=== PATIENT | male | born 1990 | race African-American/Black ===

== ENCOUNTER 2020-05-16 20:46 | Emergency (ER) | payer OTHER, SELFPAY ==
[2020-05-16 20:51] VITALS: BP 144/90; PULSE 104; RESP 20; TEMP 36.3; O2SAT 96; BMI 32.8
--- NOTE | 2020-05-16 21:49 | ED.ANIMALBIT ---
HPI - Animal Bite General Chief Complaint: Animal Bite Stated Complaint: dog bite - work related Time Seen by Provider: 05/16/20 21:34 Source: patient Mode of arrival: ambulatory Limitations: no limitations History of Present Illness HPI narrative: Patient comes to emergency room complaining of a dog bite in the right calf. Patient works for [employer]. Patient states that the dog was in the backyard, bit him in the calf. The dog's academic coordinator was present, urged the patient to come to the emergency room, but the academic coordinator did not give any information about himself or the dog. Patient only has the address. Patient has no other injuries. Related Data Previous Rx's Medication Instructions Recorded amoxicillin-pot clavulanate 1 tab PO BID #14 tab 05/16/20 [Augmentin] Allergies Allergy/AdvReac Type Severity Reaction Status Date / Time No Known Allergies Allergy Verified 05/16/20 20:55 Review of Systems Review of Systems: Constitutional : No Weight loss, No Fever, No Chills, No Night Sweats, No Fatigue, No Malaise ENT/Mouth : No Hearing loss, No Ear Pain, No Nasal Congestion, No Sinus Pain, No Hoarseness, No sore throat, No Rhinorrhea, No Swallowing Difficulty Eyes: No Eye Pain, No Swelling, No Redness, No Foreign Body, No Discharge, No Vision Changes Cardiovascular : No Chest Pain, No SOB, No Dyspnea on Exertion, No Orthopnea, No Edema, No Palpitations Respiratory : No Cough, No Sputum, No Wheezing, No Smoke Exposure, No Dyspnea Gastrointestinal : No Nausea, No Vomiting, No Diarrhea, No Constipation, No abdominal Pain, No Hematochezia, No Melena Genitourinary : no irregular bleeding, No Dysuria, No Urinary Frequency, No Hematuria, No Urinary Incontinence, No Urgency, No Flank Pain, No Urinary Flow Changes, No Hesitancy Musculoskeletal : Dog bite to right calf Skin : No Skin Lesions, No rash Neuro : No Weakness, No Numbness, No Paresthesias, No Loss of Consciousness, No Dizziness, No Headache Psych : No Anxiety/Panic, No Depression, No SI/HI/AH/VH, No Social Issues, Heme/Lymph: No Bruising, No Bleeding,No Lymphadenopathy Endocrine : No Polyuria, No Polydipsia, No Temperature Intolerance PMFSH Past Medical History Surgical History History of eye surgery History of knee surgery Social History Social History Advance Directives: No Advance Directives Information Provided: Yes Physical Exam Vital Signs: Vital Signs: Last Vital Signs Temp 97.3 F 05/16/20 20:51 Pulse 104 H 05/16/20 20:51 Resp 20 05/16/20 20:51 BP 144/90 H 05/16/20 20:51 Pulse Ox 96 05/16/20 20:51 Body Mass Index 32.8 Appearance: Alert. Oriented X3. No acute distress. Eyes: Pupils equal, round and reactive to light. ENT: Pharynx normal. Neck: Normal inspection. Neck supple. No lymph nodes noted. No crepitus CVS: Normal heart rate and rhythm. Pulses normal. Normal S1 and S2 Respiratory: No respiratory distress. Breath sounds normal. No Wheezing. No rales Abdomen: Soft and nontender. No rigidity. No distention. good BS x4 Skin: Skin warm and dry. Abrasion like lesion to the right calf, no punctured wound Extremities: No lower extremity edema. See (skin) above Neuro: Oriented X 3. No motor deficit. No sensory deficit. Moving all extermities. No slurred speech. Course Course Course Narrative: I discussed with the patient that even though he has the address where he was bitten, he does not have any information about the academic coordinator or the dog. There is a possibility, that after this incident, the dog's academic coordinator and the dog may not be available. I recommended to the patient to get a series of rabies shots, Tdap, and oral antibiotic. Patient agrees with plan. Patient was provided with information for his follow-up immunizations. Discharge Plan Discharge Clinical Impression: Dog bite Qualifiers: Encounter type: initial encounter Qualified Code(s): W54.0XXA - Bitten by dog, initial encounter Patient Disposition: Home, Self-Care Instructions: Animal Bite (ED) Additional Instructions: Is follow-up for the rest of your reviews immunizations. Please follow-up with your primary care physician tomorrow. If you have any worsening or new symptoms, please return to the emergency room or call 911 Prescriptions: New amoxicillin-pot clavulanate [Augmentin] 875-125 mg tablet 1 tab PO BID Qty: 14 RF: 0 Stand Alone Forms: Work/School Release
[2020-05-16] MEDS: Amoxicillin/Potassium Clav 875 MG TABLET PO (22:12)
[2020-05-16] MEDS: Rabies Vaccine (PCEC)/PF 1 ML VIAL IM (22:12)
[2020-05-16] MEDS: Rabies Immune Globulin/PF 1,500 UNIT/5 ML VIAL 1905.08 UNIT IM (22:14)
--- NOTE | 2020-05-16 23:34 | PC.NURSE ---
HYPER RAB DIVIDED HALF GIVEN BY DR. VILLAGRAN IN WOUND SITE OTHER GIVEN IN [facility]
== END 2020-05-16 23:35 | disposition home or self-care (01) ==
LOC: HO.ED 22:02 → HO.SSS 05-19 11:23
PROVIDERS: Emergency Provider Emergency Medicine
DX: S80.811A Abrasion, right lower leg, initial encounter (principal); W54.0XXA Bitten by dog, initial encounter; Y93.89 Activity, other specified; Y92.017 Garden or yard in single-family (private) house as the place of occurrence of the external cause; Y99.0 Civilian activity done for income or pay; Z20.3 Contact with and (suspected) exposure to rabies
CPT/HCPCS: 90375; 90471; 90675; 96372; 99284

== ENCOUNTER 2020-05-19 11:00 | Outpatient (REF) | payer OTHER, SELFPAY ==
[2020-05-19] MEDS: Rabies Vaccine (PCEC)/PF 1 ML VIAL IM (12:07)
[2020-05-19 12:17] VITALS: BP 131/68; PULSE 78; RESP 18; TEMP 36.7; O2SAT 98
== END 2020-05-19 12:36 | disposition home health service (06) ==
LOC: HO.SSS 11:00
PROVIDERS: Visit Provider Emergency Medicine
DX: Z29.14 Encounter for prophylactic rabies immune globulin (principal); S80.871D Other superficial bite, right lower leg, subsequent encounter; W54.0XXD Bitten by dog, subsequent encounter; Z20.3 Contact with and (suspected) exposure to rabies
CPT/HCPCS: 90675

== ENCOUNTER 2020-05-23 21:23 | Emergency (ER) | payer SELFPAY ==
--- NOTE | 2020-05-23 23:43 | PC.NURSE ---
PT CALLED, NO RESPONSE IN WAITING ROOM.
== END 2020-05-24 00:09 | disposition left against medical advice (07) ==
PROVIDERS: Emergency Provider Emergency Medicine
DX: Z20.3 Contact with and (suspected) exposure to rabies (principal)

== ENCOUNTER 2020-05-24 07:50 | Outpatient (REF) | payer OTHER, SELFPAY | END 2020-05-24 07:51 | disposition home or self-care (01) | LOC: HO.MDS 07:50 | DX: Z29.14 Encounter for prophylactic rabies immune globulin (principal); S80.871D Other superficial bite, right lower leg, subsequent encounter; W54.0XXD Bitten by dog, subsequent encounter; Z20.3 Contact with and (suspected) exposure to rabies | CPT/HCPCS: 90471; 90675 ==

== ENCOUNTER 2020-05-24 08:24 | Outpatient (REF) | payer OTHER, SELFPAY | END 2020-05-24 08:25 | disposition home or self-care (01) | LOC: HO.LAB 08:24 | PROVIDERS: Visit Provider Internal Medicine | DX: Z20.822 Contact with and (suspected) exposure to COVID-19 (principal) | CPT/HCPCS: 36415; C9803; U0003; U0005 ==

== ENCOUNTER 2020-06-01 08:36 | Outpatient (REF) | payer OTHER, SELFPAY | END 2020-06-01 08:37 | disposition home or self-care (01) | LOC: HO.MDS 08:36 | DX: Z29.14 Encounter for prophylactic rabies immune globulin (principal); S80.871D Other superficial bite, right lower leg, subsequent encounter; W54.0XXD Bitten by dog, subsequent encounter; Z20.3 Contact with and (suspected) exposure to rabies | CPT/HCPCS: 90471; 90675 ==

== ENCOUNTER 2020-06-19 15:57 | Emergency (ER) | payer OTHER, SELFPAY ==
[2020-06-19 16:10] VITALS: BP 131/87; PULSE 85; RESP 18; TEMP 36.3; O2SAT 98; BMI 29.5
--- NOTE | 2020-06-19 17:04 | PC.NURSE ---
PT WOUND CLEANED AND FLUSHED ANTIBIOTIC APPLIED WITH DSD.
[2020-06-19 17:19] VITALS: BP 129/83; PULSE 75; RESP 14; O2SAT 96
--- NOTE | 2020-06-19 17:28 | ED_ITS ---
HPI - Animal Bite General Chief Complaint: Animal Bite Stated Complaint: dog bite - work related Time Seen by Provider: 06/19/20 16:44 Source: patient Mode of arrival: ambulatory Limitations: no limitations History of Present Illness HPI narrative: Patient comes to emergency room complaining of a dog bite in his right lower extremity. Patient works for [employer]. Patient states a smaller dog bit him in the distal aspect of the right thigh. Approximately 1 month ago. 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 On his May visit, patient got immunized for rabies, also received a tetanus booster. Patient states that he did complete the series of rabies shots as indicated. Previous wound is healing well MD complaint: animal bite Related Data Previous Rx's Medication Instructions Recorded amoxicillin-pot clavulanate 1 tab PO BID #14 tab 05/16/20 [Augmentin] amoxicillin-pot clavulanate 1 tab PO BID #14 tab 06/19/20 [Augmentin] Allergies Allergy/AdvReac Type Severity Reaction Status Date / Time No Known Allergies Allergy Verified 06/19/20 16:10 Review of Systems Review of Systems: Constitutional : No Weight loss, No Fever, No Chills, No Night Sweats, No Fatigue, No Malaise ENT/Mouth : No Hearing loss, No Ear Pain, No Nasal Congestion, No Sinus Pain, No Hoarseness, No sore throat, No Rhinorrhea, No Swallowing Difficulty Eyes: No Eye Pain, No Swelling, No Redness, No Foreign Body, No Discharge, No Vision Changes Cardiovascular : No Chest Pain, No SOB, No Dyspnea on Exertion, No Orthopnea, No Edema, No Palpitations Respiratory : No Cough, No Sputum, No Wheezing, No Smoke Exposure, No Dyspnea Gastrointestinal : No Nausea, No Vomiting, No Diarrhea, No Constipation, No abdominal Pain, No Hematochezia, No Melena Genitourinary : no irregular bleeding, No Dysuria, No Urinary Frequency, No Hematuria, No Urinary Incontinence, No Urgency, No Flank Pain, No Urinary Flow Changes, No Hesitancy Musculoskeletal : No joint pain, No Myalgias, No Joint Swelling Skin : Dog bites to the thigh Neuro : No Weakness, No Numbness, No Paresthesias, No Loss of Consciousness, No Dizziness, No Headache Psych : No Anxiety/Panic, No Depression, No SI/HI/AH/VH, No Social Issues, Heme/Lymph: No Bruising, No Bleeding,No Lymphadenopathy Endocrine : No Polyuria, No Polydipsia, No Temperature Intolerance [facility] Past Medical History Surgical History History of eye surgery History of knee surgery Social History Social History Alcohol intake: never Advance Directives: No Advance Directives Information Provided: No Physical Exam Vital Signs: Vital Signs: Last Vital Signs Temp 97.3 F 06/19/20 16:10 Pulse 75 06/19/20 17:19 Resp 14 06/19/20 17:19 BP 129/83 06/19/20 17:19 Pulse Ox 96 06/19/20 17:19 Body Mass Index 29.5 Appearance: Alert. Oriented X3. No acute distress. Eyes: Pupils equal, round and reactive to light. ENT: Pharynx normal. Neck: Normal inspection. Neck supple. No lymph nodes noted. No crepitus CVS: Normal heart rate and rhythm. Pulses normal. Normal S1 and S2 Respiratory: No respiratory distress. Breath sounds normal. No Wheezing. No rales Abdomen: Soft and nontender. No rigidity. No distention. good BS x4 Skin: Skin warm and dry. Old dog bite is healing well in the cast. New dog bite in the distal aspect of the right thigh has multiple small puncture wounds, not deep, not bleeding. Extremities: No lower extremity edema. No lower extremity edema. No Lacerations. No Rash Neuro: Oriented X 3. No motor deficit. No sensory deficit. Moving all extermities. No slurred speech. Course Course Course Narrative: I discussed with the patient that if he has any signs of infection, he needs to return to the emergency room. Patient received his tetanus shot series of rabies shots in May of 2020 Discharge Plan Discharge Clinical Impression: Dog bite Qualifiers: Encounter type: initial encounter Qualified Code(s): W54.0XXA - Bitten by dog, initial encounter Patient Disposition: Home, Self-Care Instructions: Animal Bite (ED) Additional Instructions: If you have any signs of infection such as spreading redness, pus drainage, fever or chills, please return to the emergency room. Please follow-up with your primary care physician tomorrow. If you have any worsening or new symptoms, please return to the emergency room or call 911 Prescriptions: New amoxicillin-pot clavulanate [Augmentin] 875-125 mg tablet 1 tab PO BID Qty: 14 RF: 0 No Action amoxicillin-pot clavulanate [Augmentin] 875-125 mg tablet 1 tab PO BID Qty: 14 RF: 0
[2020-06-19] MEDS: Amoxicillin/Potassium Clav 875 MG TABLET PO (17:56)
== END 2020-06-19 18:00 | disposition home or self-care (01) ==
PROVIDERS: Emergency Provider Emergency Medicine
DX: S71.151A Open bite, right thigh, initial encounter (principal); M79.604 Pain in right leg; W54.0XXA Bitten by dog, initial encounter; Y93.9 Activity, unspecified; Y92.9 Unspecified place or not applicable; Y99.9 Unspecified external cause status; Z79.899 Other long term (current) drug therapy
CPT/HCPCS: 99283; 99284